=== PATIENT | male | born 1960 | race Caucasian/White ===

== ENCOUNTER 2017-02-11 07:06 | Inpatient (IN) | payer OTHER ==
--- NOTE | ~2017-02-11 | HP ---
History And Physical [facility] [address] [address] [place]. [address] NAME: ELAN PULLIAM JR : 62 STATUS : ADM IN PAT#: [id number] AGE: 56 ADM/REG DATE : 02/11/17 MR#: [id number] REPORT SERV DATE: 02/11/17 DICTATED BY: JUDY HUTCHINSON DATE: 02/11/17 REPORT STATUS : Draft TRANSCRIBED BY: MODL DATE: 02/11/17 DATE OF ADMISSION: 02/11/2017 Pulmonary Critical Care Admitting History and Physical REASON FOR ADMISSION: Intraabdominal bleeding following transjugular hepatic biopsy in Interventional Radiology and GAINES cirrhosis. HISTORY OF PRESENT ILLNESS: Mr. Elan Pulliam is a 56-year-old gentleman from [place], [place], who was admitted as an outpatient this afternoon to Dr. Vishnu Ontiveros to undergo workup for GAINES. He was in Interventional Radiology undergoing a transjugular hepatic biopsy this morning with Dr. Almaraz and the procedure was uneventful, however, afterward, he developed some sharp abdominal pain and a followup CT was obtained showing some contrast enhancement in the abdominal gutter suggesting bleeding. He was taken back to the special procedure suite and right femoral access was obtained and he underwent angiography and ultimately coiling and stenting to control his bleeding. He is now being moved to the MICU for close observation overnight with sheath remaining in place and serial labs as well as hemodynamic monitoring. Dr. Ontiveros is aware of his transfer to the ICU and Critical Care Medicine will be assuming care of Mr. Pulliam as primary until he has been stabilized. PAST MEDICAL HISTORY: Previous coronary artery bypass grafting for coronary artery disease; mechanical AVR requiring long-term continuous anticoagulation ([facility]); adult-onset diabetes mellitus type 2, controlled with oral medications; dyslipidemia; hypertension; lumbar spine stenosis with multiple recent lumbar spine surgeries as per Dr. Abdul. He has had previous diabetic foot infections, morbid obesity, and GAINES as above with unclear cirrhosis status. PAST SURGICAL HISTORY: Coronary artery bypass grafting per Dr. España. As above, lumbar fusion for lumbar spine stenosis, his coronary artery bypass grafting was six vessels, mechanical aortic valve replacement, diabetic ulcer I and D in [address] James. SOCIAL HISTORY: The patient is and lives in [place], [place]. He is a nonsmoker. Socially uses alcohol. Has two children three stepchildren and he previously worked as a hand trucker. FAMILY HISTORY: Both parents are . Father due to a traumatic accident. Mother had cancer of unknown etiology. ALLERGIES: INCLUDE SULFA. HOME MEDICATIONS: Include Amaryl 4 mg p.o. every morning, Glucophage 500 mg p.o. three times daily, Lopressor 25 mg p.o. twice a day, Coumadin 6 mg at bedtime Wednesday, Wednesday, , and Wednesday, Prilosec 20 mg at bedtime, Robaxin 750 mg every eight hours as needed for pain, Lexapro 20 mg at bedtime, gabapentin 300 mg three times daily, Roxicodone 20 mg up to every six hours as needed for pain, Lipitor 20 mg at bedtime, Invokana 100 mg at bedtime, slow iron release 60 mg p.o. daily, and Advil 200 mg p.o. daily as needed for pain symptoms History And Physical [address] [address] NAME: ELAN PULLIAM Maryjo GUAJARDO : 62 STATUS : ADM IN [facility]#: [id number] AGE: 56 ADM/REG DATE : 02/11/17 MR#: [id number] REPORT SERV DATE: 02/11/17 DICTATED BY: JUDY HUTCHINSON DATE: 02/11/17 REPORT STATUS : Draft TRANSCRIBED BY: KRYSTAL DATE: 02/11/17 not controlled by additional medications. ADVANCED DIRECTIVES AND LIVING CRABTREE: None. REVIEW OF SYSTEMS: A comprehensive 13-point review of systems was completed and was negative except for those points described above in the history of present illness section of the dictation. PHYSICAL EXAMINATION: GENERAL: The patient is a morbidly obese, male, in no acute distress. He is cooperative and interactive with my examination. HEENT: Head is atraumatic and normocephalic. Pupils are equal, round, and reactive to light. He has no scleral icterus or conjunctival pallor. Ears, nose, and mouth are unremarkable. He has fair oral dentition and moist oral mucosa. NECK: Supple with redundant soft tissue about the neck limiting ability to assess for JVD. HEART: S1, S2 with a mechanical aortic valve click which is audible. Brisk cap refill distal extremities. LUNGS: With diminished breath sounds bilaterally secondary to his obese body habitus. ABDOMEN: Tender in the right upper quadrant to light palpation. He has no peritoneal signs. He has audible bowel sounds in all four quadrants. He has surgical scars from previous sternotomy as well as over the lumbar spine from previous surgeries there. : Normal external male genitalia. No Wallace is present. SKIN: Scars as above. Warm and dry. No pallor. He has a femoral sheath in place and a bandage from a transjugular approach on the right neck from earlier today with no active bleeding. NEUROLOGIC: Grossly intact. He moves all four extremities without difficulty. LYMPHATIC: Unremarkable. No palpable adenopathy. PSYCHIATRIC: Appropriate to situation. DIAGNOSTIC DATA: Personal review of diagnostic workup completed today. A CBC from this morning shows a white blood cell count of 11 with normal hemoglobin and hematocrit of 14.6 and 48.8. He has microcytic hypochromic anemia. Platelet count is adequate at 250. He has mildly coagulopathic with an INR of 1.6 in the setting of Coumadin use. Metabolic profile is largely unremarkable. His electrolytes, acid-base status are unremarkable. He has BUN with creatinine of 12 and 1.25. Liver function tests are within normal limits. A followup H and H later today shows a hemoglobin of 13.9 and a hematocrit of 45.3. IR angiography reports and CT reports were reviewed with Dr. Almaraz. There was a small flash of contrast outside of the liver capsule adjacent to the duodenum suspected to be bleeding secondary to the biopsy procedure. An EKG is not available. I did review his previous records in both [facility] and [facility] carefully. IMPRESSION: 1. Intraabdominal bleeding, status post transjugular liver biopsy. 2. Nonalcoholic steatohepatitis, followed by Dr. Ontiveros. 3. Status post aortic valve replacement (mechanical). With ongoing use of continuous warfarin therapy which may be contributing to his bleeding. History And Physical [address] [place]. [address] NAME: PULLIAMELAN JR : 62 STATUS : ADM IN [facility]#: [id number] AGE: 56 ADM/REG DATE : 02/11/17 MR#: [id number] REPORT SERV DATE: 02/11/17 DICTATED BY: JUDY HUTCHINSON DATE: 02/11/17 REPORT STATUS : Draft TRANSCRIBED BY: KRYSTAL DATE: 02/11/17 4. Coronary artery disease, status post six-vessel coronary artery bypass graft in 2011. 5. Type 2 diabetes mellitus, with prior complication of a foot infection and neuropathy. 6. Question of early chronic kidney disease. 7. Mild leukocytosis. 8. Microcytic hyperchromic anemia, already on iron-replacement therapy as an outpatient. 9. History of lumbar spine stenosis requiring lumbar laminectomy and fusion. 10.Hypertension, dyslipidemia, morbid obesity, and occasional alcohol use. PLAN: We will admit Mr. Pulliam to the MICU for close monitoring. At Dr. Almaraz request femoral sheath will stay in place and we will follow serial H and Hs, and if he does develop any additional bleeding, we may need to return to the special procedure suite for additional attempts at control of bleeding. However, Dr. Almaraz feels that satisfactory hemostasis has been obtained after the current procedure in which coils and stents were inserted. We will review home medications and resume when appropriate, control his pain with narcotics as he does have a fairly high tolerance to his outpatient narcotic regimen. Place him on a laxative regimen to avoid narcotic associated constipation. Place SCDs and TEDs for DVT prophylaxis in the setting of active bleeding in which chemoprophylaxis is contraindicated and make further adjustments to his regimen as clinically warranted. His and Dr. Ontiveros were updated following decision to transfer him to MICU. SULEMAN/KRYSTAL Judy Hutchinson MD / [id number] CC: MD ALBERT Lauren STANDFORD
--- NOTE | ~2017-02-11 | DS ---
Discharge Summary [facility] [address] [place]. [address] NAME: ELAN PULLIAM JR : 62 STATUS : ADM IN PAT#: [id number] AGE: 56 ADM/REG DATE : 02/11/17 MR#: [id number] REPORT SERV DATE: 02/13/17 DICTATED BY: IAN VELASQUEZ DATE: 02/13/17 REPORT STATUS : Draft TRANSCRIBED BY: MODL DATE: 02/13/17 ADMISSION DATE: 02/11/2017 DISCHARGE DATE: 02/13/2017 DISCHARGE DIAGNOSES: 1. Intraabdominal bleeding after liver biopsy. 2. Acute blood loss anemia. 3. Nonalcoholic steatohepatitis. 4. Type 2 diabetes. 5. Coronary artery disease, history of CABG and AVR. HOSPITAL COURSE: The patient came in as an outpatient for Intervention Radiology to obtain a liver biopsy. The patient developed stabbing sharp abdominal pain following the procedure and then a followup CT scan shows some contrast extravasation suggesting some bleeding. The patient then underwent angiography with ultimate coiling and stenting to control the bleeding. He went to MICU for observation. He never required any blood transfusions. Pathology on a liver needle core biopsy on 02/11/2017, showed mild steatohepatitis with raul cellular fibrosis. The patient is on long-term anticoagulation because of history of mechanical AVR. Hemoglobin this morning was 10.7, on 02/13/2017. His PT/INR this morning is 23.3 and 2.1. He is supposed to follow up with his liver doctor in two weeks as well as primary care doctor in two weeks. DISCHARGE PHYSICAL EXAMINATION: VITAL SIGNS: Per nursing flow sheet. GENERAL: In no acute distress. Alert and oriented. HEENT: Normocephalic and atraumatic. NECK: Trachea midline. HEART: Regular rate and rhythm. No murmurs. LUNGS: Clear to auscultation bilaterally. No wheezes, rales, or rubs. GASTROINTESTINAL: Soft, nontender, and nondistended. Obese abdomen. EXTREMITIES: No significant edema, cyanosis, or clubbing. NEURO: GCS 15. DISCHARGE MEDICATIONS: Addressed. DICTATED BY: Ian Velasquez DO CEP/KRYSTAL Ian Velasquez DO / [id number] Discharge Summary [address] [address] NAME: ELAN PULLIAM : 62 STATUS : ADM IN PAT#: [id number] AGE: 56 ADM/REG DATE : 02/11/17 MR#: [id number] REPORT SERV DATE: 02/13/17 DICTATED BY: IAN VELASQUEZ DATE: 02/13/17 REPORT STATUS : Draft TRANSCRIBED BY: MODL DATE: 02/13/17 CC: MD ALBERT Lauren STANDFORD Chirag Patel, M.D.
[~2017-02-11 07:06] MED LIST: ADVIL PO; AMARYL2 PO; ASAB PO; CEFT5 PO; CINNAMON; COUMADIN10 MG PO; COUMADIN6 MG PO; DSS PO; DURICEF PO; GLUCOPHAGE1000 MG PO; GLUCPH PO; INVOKANA100 MG PO; IRON325 MG PO; JANTOVEN1 MG PO; JANTOVEN6 MG PO; JANUMET1 TA1 PO; L40 PO; LEVAQUIN5T PO; LEXAPRO20 PO; LIPITOR20 PO; LIPITOR40 PO; LOP50 PO; LOVENOX80 SC; METHOC750B PO; MEVACOR10 MG PO; MONODOX100 MG PO; MOTRIN IB200 MG PO; MUCINEX1200 MG PO; MULTIPLE VIT PO; NEUR300 PO; NITROQUICK0.4 MG SL; NORCO1 TA1 PO; NORCO1 TAB; NORV5 PO; OXYCOD PO; PCET PO; PERCOCET1 TA2 PO; PERCOCET1 TA4 PO; PRILO PO; PRILOSEC OTC20 MG PO; PRIN10 PO; RIFADIN 300 MG300 MG PO; SAW PALMENTO; SLOW IRON PO; TAMIFLU45 MG PO; VITC500 PO; ZESTORETIC1 TAB PO
[2017-02-11 07:59] LABS: BASOPHILS 0.5 %; BASOPHILS ABSOLUTE 0.06 10/3/uL (0.0-0.16); EOSINOPHILS 4.1 %; EOSINOPHILS ABSOLUTE 0.45 10/3/uL (0.0-0.53); IMMATURE GRANULOCYTES 0.4 %; IMMATURE GRANULOCYTES ABSOLUTE 0.04 10/3/uL (0.0-0.11); LYMPHOCYTES 21.6 %; LYMPHOCYTES ABSOLUTE 2.37 10/3/uL (0.67-4.30); MEAN PLATELET VOLUME 10.2 fL (9.2-13.0); MONOCYTES 10.5 %; MONOCYTES ABSOLUTE 1.15 10/3/uL (0.21-1.20); NEUTROPHILS 62.9 %; NEUTROPHILS ABSOLUTE 6.89 10/3/uL (2.02-8.40)
[2017-02-11 08:00] LABS: HEMATOCRIT 48.1 % (40.0-51.0); HEMOGLOBIN 14.6 g/dL (13.6-17.8); MANUAL DIFF NO %; MEAN CORPUS HGB CONC 30.4 g/dL (32.0-36.0); MEAN CORPUSCULAR HEMOGLOB 23.5 pg (26.0-34.0); MEAN CORPUSCULAR VOLUME 77.3 fL (80-100); PLATELET COUNT 250 10/3/uL (150-400); RBC DISTRIBUTION WIDTH 18.7 % (12.0-16.0); RED CELL COUNT 6.22 10/6/uL (4.7-6.1)
[2017-02-11] MEDS ORDERED: ADVIL PO (08:02)
[2017-02-11 08:05] LABS: INTERNATIONAL NORMAL RATI 1.6 UNITS (-); PARTIAL THROMBO TIME 43.9 SEC (22.5-37.2)
[2017-02-11 10:07] LABS: A/G RATIO 0.8 (0.7-1.9); ALBUMIN 3.5 G/DL (3.5-5.0); ALKALINE PHOSPHATASE 97 U/L (45-117); CHLORIDE, SERUM 103 MMOL/L (96-112); CO2 (CARBON DIOXIDE) 32 MMOL/L (24-34); CREATININE 1.25 MG/DL (0.70-1.30); GFR AFRICAN AMERICAN 75 ML/MIN (>=60); GFR NON AFRICAN AMERICAN 64 ML/MIN (>=60); POTASSIUM, SERUM 4.3 MMOL/L (3.5-5.3); SGOT(AST) 25 U/L (5-40); SGPT(ALT) 27 U/L (5-65); SODIUM, SERUM 140 MMOL/L (135-148); TOTAL BILIRUBIN 0.6 MG/DL (0-1.2)
[2017-02-11 10:08] LABS: BUN (BLOOD UREA NITROGEN) 12 MG/DL (6-23); GLOBULIN 4.5 G/DL (2.5-4.1); GLUCOSE, SERUM 97 MG/DL (60-99)
[2017-02-11 13:15] LABS: HEMATOCRIT 45.3 % (40.0-51.0); HEMOGLOBIN 13.9 g/dL (13.6-17.8)
[2017-02-11 22:40] LABS: BASOPHILS 0.2 %; BASOPHILS ABSOLUTE 0.03 10/3/uL (0.0-0.16); EOSINOPHILS 0.1 %; EOSINOPHILS ABSOLUTE 0.02 10/3/uL (0.0-0.53); HEMATOCRIT 42.1 % (40.0-51.0); IMMATURE GRANULOCYTES 0.3 %; IMMATURE GRANULOCYTES ABSOLUTE 0.06 10/3/uL (0.0-0.11); LYMPHOCYTES 3.7 %; LYMPHOCYTES ABSOLUTE 0.68 10/3/uL (0.67-4.30); MEAN CORPUS HGB CONC 30.9 g/dL (32.0-36.0); MEAN CORPUSCULAR HEMOGLOB 24.1 pg (26.0-34.0); MEAN PLATELET VOLUME 9.4 fL (9.2-13.0); MONOCYTES 8.6 %; MONOCYTES ABSOLUTE 1.58 10/3/uL (0.21-1.20); NEUTROPHILS 87.1 %; NEUTROPHILS ABSOLUTE 15.92 10/3/uL (2.02-8.40); PLATELET COUNT 217 10/3/uL (150-400); RBC DISTRIBUTION WIDTH 18.2 % (12.0-16.0)
[2017-02-11 22:41] LABS: MANUAL DIFF NO %; WHITE BLOOD CELLS 18.3 10/3/uL (4.5-10.5)
[2017-02-11 22:47] LABS: INTERNATIONAL NORMAL RATI 1.8 UNITS (-); PARTIAL THROMBO TIME 39.8 SEC (22.5-37.2); PROTIME (NOT ORD) 20.7 SEC (12.0-14.5)
[2017-02-11 22:56] LABS: A/G RATIO 0.8 (0.7-1.9); ALBUMIN 3.1 G/DL (3.5-5.0); ALKALINE PHOSPHATASE 95 U/L (45-117); BUN (BLOOD UREA NITROGEN) 12 MG/DL (6-23); CALCIUM, SERUM 8.4 MG/DL (8.5-10.4); CHLORIDE, SERUM 103 MMOL/L (96-112); CO2 (CARBON DIOXIDE) 30 MMOL/L (24-34); CREATININE 1.04 MG/DL (0.70-1.30); GFR AFRICAN AMERICAN 93 ML/MIN (>=60); GFR NON AFRICAN AMERICAN 80 ML/MIN (>=60); SGOT(AST) 22 U/L (5-40); SGPT(ALT) 28 U/L (5-65); SODIUM, SERUM 140 MMOL/L (135-148); TOTAL BILIRUBIN 0.7 MG/DL (0-1.2); TOTAL PROTEIN 7.1 G/DL (6.0-8.5)
[2017-02-11 22:57] LABS: GLUCOSE, SERUM 156 MG/DL (60-99); PHOSPHORUS, SERUM 3.3 MG/DL (2.5-4.5); POTASSIUM, SERUM 5.2 MMOL/L (3.5-5.3)
[2017-02-12 04:59] LABS: BASOPHILS 0.1 %; BASOPHILS ABSOLUTE 0.02 10/3/uL (0.0-0.16); EOSINOPHILS 0.1 %; EOSINOPHILS ABSOLUTE 0.02 10/3/uL (0.0-0.53); HEMATOCRIT 39.3 % (40.0-51.0); HEMOGLOBIN 11.7 g/dL (13.6-17.8); IMMATURE GRANULOCYTES 0.2 %; IMMATURE GRANULOCYTES ABSOLUTE 0.03 10/3/uL (0.0-0.11); LYMPHOCYTES 7.5 %; LYMPHOCYTES ABSOLUTE 1.15 10/3/uL (0.67-4.30); MEAN CORPUS HGB CONC 29.8 g/dL (32.0-36.0); MEAN CORPUSCULAR VOLUME 77.2 fL (80-100); MEAN PLATELET VOLUME 9.9 fL (9.2-13.0); MONOCYTES 9.2 %; MONOCYTES ABSOLUTE 1.41 10/3/uL (0.21-1.20); NEUTROPHILS 82.9 %; NEUTROPHILS ABSOLUTE 12.71 10/3/uL (2.02-8.40); PLATELET COUNT 237 10/3/uL (150-400); RBC DISTRIBUTION WIDTH 18.2 % (12.0-16.0); RED CELL COUNT 5.09 10/6/uL (4.7-6.1); WHITE BLOOD CELLS 15.3 10/3/uL (4.5-10.5)
[2017-02-12 05:04] LABS: BUN (BLOOD UREA NITROGEN) 12 MG/DL (6-23); CALCIUM, SERUM 8.4 MG/DL (8.5-10.4); CHLORIDE, SERUM 103 MMOL/L (96-112); CO2 (CARBON DIOXIDE) 32 MMOL/L (24-34); CREATININE 1.13 MG/DL (0.70-1.30); GFR AFRICAN AMERICAN 84 ML/MIN (>=60); GFR NON AFRICAN AMERICAN 73 ML/MIN (>=60); GLUCOSE, SERUM 152 MG/DL (60-99); PHOSPHORUS, SERUM 3.6 MG/DL (2.5-4.5); POTASSIUM, SERUM 4.7 MMOL/L (3.5-5.3); SODIUM, SERUM 142 MMOL/L (135-148)
[2017-02-12 05:06] LABS: MANUAL DIFF NO %
[2017-02-12 11:31] LABS: HEMATOCRIT 37.3 % (40.0-51.0); HEMOGLOBIN 11.3 g/dL (13.6-17.8)
[2017-02-12 13:12] LABS: INTERNATIONAL NORMAL RATI 1.9 UNITS (-); PROTIME (NOT ORD) 21.5 SEC (12.0-14.5)
[2017-02-12 13:13] LABS: PARTIAL THROMBO TIME 44.6 SEC (22.5-37.2)
[2017-02-13 06:30] LABS: BASOPHILS 0.3 %; BASOPHILS ABSOLUTE 0.03 10/3/uL (0.0-0.16); EOSINOPHILS 1.9 %; EOSINOPHILS ABSOLUTE 0.19 10/3/uL (0.0-0.53); HEMATOCRIT 36.1 % (40.0-51.0); HEMOGLOBIN 10.7 g/dL (13.6-17.8); IMMATURE GRANULOCYTES 0.2 %; IMMATURE GRANULOCYTES ABSOLUTE 0.02 10/3/uL (0.0-0.11); LYMPHOCYTES 9.5 %; LYMPHOCYTES ABSOLUTE 0.97 10/3/uL (0.67-4.30); MEAN CORPUS HGB CONC 29.6 g/dL (32.0-36.0); MEAN CORPUSCULAR HEMOGLOB 23.1 pg (26.0-34.0); MEAN CORPUSCULAR VOLUME 77.8 fL (80-100); MEAN PLATELET VOLUME 9.9 fL (9.2-13.0); MONOCYTES 11.4 %; MONOCYTES ABSOLUTE 1.17 10/3/uL (0.21-1.20); NEUTROPHILS 76.7 %; NEUTROPHILS ABSOLUTE 7.86 10/3/uL (2.02-8.40); PLATELET COUNT 211 10/3/uL (150-400); RED CELL COUNT 4.64 10/6/uL (4.7-6.1); WHITE BLOOD CELLS 10.2 10/3/uL (4.5-10.5)
[2017-02-13 06:31] LABS: MANUAL DIFF NO %
[2017-02-13 06:34] LABS: INTERNATIONAL NORMAL RATI 2.1 UNITS (-); PROTIME (NOT ORD) 23.3 SEC (12.0-14.5)
[2017-02-13 06:38] LABS: BUN (BLOOD UREA NITROGEN) 15 MG/DL (6-23); CALCIUM, SERUM 8.7 MG/DL (8.5-10.4); CHLORIDE, SERUM 102 MMOL/L (96-112); CO2 (CARBON DIOXIDE) 32 MMOL/L (24-34); CREATININE 0.91 MG/DL (0.70-1.30); GFR AFRICAN AMERICAN 110 ML/MIN (>=60); GFR NON AFRICAN AMERICAN 95 ML/MIN (>=60); GLUCOSE, SERUM 108 MG/DL (60-99); PHOSPHORUS, SERUM 2.2 MG/DL (2.5-4.5); POTASSIUM, SERUM 4.4 MMOL/L (3.5-5.3); SODIUM, SERUM 137 MMOL/L (135-148)
== END 2017-02-13 10:54 | disposition home or self-care (01) | DRG 908 ==
LOC: CSSUOP 07:06 → RADHOLD 07:15 → SSU1 18:34 → CSSUOP 20:41 → MIC 20:43
PROVIDERS: Internal Medicine Critical Care Medicine; Internal Medicine Hepatology; Internal Medicine Pulmonary Disease
PROC: 0FB03ZX Excision of Liver, Percutaneous Approach, Diagnostic (ICD-10-PCS; principal; 2017-02-11)
PROC: 04V33DZ Restriction of Hepatic Artery with Intraluminal Device, Percutaneous Approach (ICD-10-PCS; 2017-02-11)
DX: K91.840 Postprocedural hemorrhage of a digestive system organ or structure following a digestive system procedure (principal); D62 Acute posthemorrhagic anemia; E66.01 Morbid (severe) obesity due to excess calories; K75.81 Nonalcoholic steatohepatitis (NASH); I10 Essential (primary) hypertension; E11.9 Type 2 diabetes mellitus without complications; E78.5 Hyperlipidemia, unspecified; I25.10 Atherosclerotic heart disease of native coronary artery without angina pectoris; Z95.1 Presence of aortocoronary bypass graft; Z95.2 Presence of prosthetic heart valve; Z80.8 Family history of malignant neoplasm of other organs or systems; Z88.2 Allergy status to sulfonamides; Z79.01 Long term (current) use of anticoagulants; Z79.899 Other long term (current) drug therapy
CPT/HCPCS: 36011; 36247; 36415; 37200; 37244; 37246; 74150; 74170; 75726; 75774; 75970; 76000; 80048; 80053; 80069; 82962; 83735; 84100; 85014; 85018; 85025; 85610; 85730; 86850; 86900; 86901; 87641; 88307; 88313; 93005; 99152; 99153; A9270-GY; C1760; C1769; C1874; C1884; C1887; C1894; C9113; J0360; J1170; J2250; J2270; J2405; J3010; Q9967